=== PATIENT | male | born 1985 | race Caucasian/White ===

== ENCOUNTER → 2016-12-03 | Outpatient (CLI) | payer MEDICAID ==
--- NOTE | 2016-12-21 09:03 | SS ---
ADMIT: 12/03/2016 RM/LOC: [facility] MR#: [id number] [place], [place] [id number] JESÚS GAYTAN [address] [place] [id number] Sleep Study SEX: M AGE: 31 : 1985 STUDY DATE: 12/03/2016 REFERRING PHYSICIAN: Alexey Lam MD CLINICAL HISTORY: This is a 31-year-old male, body mass of 50.2, 70 inches tall, 351 pounds with symptoms of snoring, daytime fatigue, in the sleep lab for evaluation of obstructive sleep apnea. TECHNICAL DESCRIPTION: Diagnostic polysomnogram was some performed on night of 12/03/2016, attended by trained mri special procedures technologist. DIAGNOSTIC POLYSOMNOGRAM FINDINGS: SLEEP: Total time 421.5 minutes, total sleep time 301.5 minutes, sleep efficiency 71.5%. 64.7% hours spent in stage II sleep, 5.2% hours spent in stage REM. BREATHING: Severe obstructive sleep apnea with apnea-hypopnea index of 35.2. During the study, there were 177 obstructive hypopneas noted. OXYGEN SATURATION: Mean sleeping of 91%. Lowest oxygen of 83%. CARDIAC: Average heart rate is 67 beats per minute. MOVEMENTS/POSITION: During the study, the patient slept in supine lateral position with no significant leg movements. According to switch technician notes, CPAP therapy was tried with multiple different masks. The patient had significant anxiety and was unable to tolerate CPAP mask. He had significant distress/panic while trying CPAP on and hence the rest of the night was continued as diagnostic with ongoing obstructive hypopneas and snoring. IMPRESSION: 1. Severe obstructive sleep apnea-hypopnea of 35.2. 2. Unable to tolerate CPAP because of claustrophobia. PLAN: Recommend period of mask desensitization followed with CPAP titration. Recommend losing weight, avoiding sedatives or alcohol, refrain from driving if excessively sleepy. Clinical correlation needed. A mask desensitization and then CPAP titration is recommended. Raudel Morris MD/ chema JOB #: [id number] CC: Beau Amaya MD, Attending Physician Beau Amaya MD, Family Physician ADMIT: 12/03/2016 RM/LOC: [facility] MR#: [id number] [place] [id number] JESÚS GAYTAN [address] [place] [address] Sleep Study SEX: M AGE: 31 : 1985 Beau Amaya MD
== END | disposition home or self-care (01) ==
LOC: RESC 20:36
DX: G47.10 Hypersomnia, unspecified (principal); G47.33 Obstructive sleep apnea (adult) (pediatric)